=== PATIENT | female | born 1930 | race Hispanic/Latino ===

== ENCOUNTER → 2017-12-22 | Outpatient (CLI) | payer MEDICARE | END | disposition home or self-care (01) | LOC: OIH 10:59 | PROVIDERS: ATTEND Internal Medicine | DX: M41.84 Other forms of scoliosis, thoracic region (principal); M85.88 Other specified disorders of bone density and structure, other site; Z91.81 History of falling | CPT/HCPCS: 72070 ==

== ENCOUNTER → 2018-08-21 | Outpatient (CLI) | payer MEDICARE | END | disposition home or self-care (01) | LOC: OIH 10:10 | PROVIDERS: ATTEND Internal Medicine | DX: M25.511 Pain in right shoulder (principal); M25.512 Pain in left shoulder; M25.521 Pain in right elbow; M25.522 Pain in left elbow; M79.632 Pain in left forearm; M79.631 Pain in right forearm; M54.12 Radiculopathy, cervical region | CPT/HCPCS: 73030; 73070; 73090 ==

== ENCOUNTER → 2020-04-12 | Outpatient (CLI) | payer MEDICARE | END | disposition home or self-care (01) | LOC: OIH 08:22 | PROVIDERS: ATTEND Internal Medicine | DX: R05 Cough (principal) | CPT/HCPCS: 71046 ==

== ENCOUNTER → 2021-02-14 | Outpatient (CLI) | payer MEDICARE | END | disposition home or self-care (01) | LOC: RAH 11:29 | PROVIDERS: ATTEND Internal Medicine | DX: M17.0 Bilateral primary osteoarthritis of knee (principal); M70.51 Other bursitis of knee, right knee; M25.762 Osteophyte, left knee; M25.761 Osteophyte, right knee; M25.462 Effusion, left knee; M25.461 Effusion, right knee ==